=== PATIENT | male | born 1980 | race Caucasian/White ===

== ENCOUNTER 2017-03-04 15:42 | Inpatient (IN) | payer BC ==
[~2017-03-04] VITALS: Ht 167.6 cm; Wt 63.5 kg
--- NOTE | ~2017-03-04 | HP ---
Unit #: [id number] #: [id number] Patient: LUX REYNOLDS JR [id number] [place] [address] [id number] MR#: [id number] NAME: LUX REYNOLDS JR ROOM: P262 Age: 36 Sex: M Admission Date: 03/04/2017 : 1980 Attending Physician: Je Mcrae M.D. Admitting Physician: Je Mcrae M.D. Primary Care Physician: Primary Care Physician No HISTORY AND PHYSICAL HISTORY OF PRESENT ILLNESS Lux is a 36 year old admitted to [address] [place] [address] because of his polysubstance abuse which includes alcohol, methamphetamine and cocaine. PAST MEDICAL HISTORY History of illicit substance abuse to include methamphetamine and cocaine. PAST SURGICAL HISTORY Oral. ALLERGIES No known drug allergies. SOCIAL HISTORY Smokes 1 pack per day. Drinks at least a 6 pack of beer on a daily basis and admits to a history of illicit drug use to include methamphetamine and cocaine. FAMILY HISTORY Medically noncontributory. REVIEW OF SYSTEMS CONSTITUTIONAL: No fever or chills. HEENT: Denies any sore throat, ear pain or runny nose. CARDIOVASCULAR: Denies chest pain, irregular heart rhythm or palpitations. CHEST: Denies shortness of breath or cough. No hemoptysis. GASTROINTESTINAL: Denies nausea, vomiting, diarrhea or chronic constipation. ENDOCRINE: Denies history of increased thirst or urination. No recent significant weight loss or gain. GENITOURINARY: Denies dysuria, frequency, or hematuria. SKIN: Denies any rashes. HEMATOLOGIC: Denies history of increased bleeding or bruising. MUSCULOSKELETAL: Denies any hot, swollen joints. No generalized muscle pain. NEUROLOGIC: Denies problems with vision or speech. No frequent, severe headaches. No numbness, tingling or weakness in any extremities. Denies loss of bladder or bowel control. CURRENT MEDICATIONS 1. Trazodone 75 mg q.h.s. p.r.n. 2. Milk of Magnesia p.r.n. 3. Maalox p.r.n. Unit #: [id number] #: [id number] Patient: LUX REYNOLDS JR 4. Tylenol p.r.n. 5. Zyprexa 10 mg b.i.d. 6. Nicotine patch 14 mg daily. PHYSICAL EXAMINATION GENERAL: Alert, well-nourished, in no apparent distress. VITAL SIGNS: Blood pressure 128/80, heart rate 80, respirations 16, temperature 98.6. WEIGHT: 140. HEIGHT: 5 feet 6 inches. SKIN: Warm and dry without rash or lesion. HEENT: Normocephalic. TMs not viewed. Oral and nasal passages clear. Conjunctivae clear. PERRLA. EOMs intact. NECK: Supple without lymphadenopathy or thyromegaly. HEART: Regular rate and rhythm without murmur. LUNGS: Clear. ABDOMEN: Soft, nontender. : Not done. EXTREMITIES: No evidence of cyanosis, clubbing or edema. Moves all without focal deficit. NEUROLOGICAL: Grossly within normal limits. Cranial Nerves: II: Visual canela are intact. III, IV AND : Extraocular movements are intact. Pupils are equal, round and reactive to light. V: Facial sensation is grossly normal. VII: Facial movements and expression are normal. VIII: Auditory acuity grossly intact. IX, X: Uvula is midline. Phonation is normal. XI: Patient shrugs shoulders and turns head normally. XII: Tongue protrudes in the midline. Sensory and Motor Function: Sensory and motor sensation is grossly normal. Motor: moves all extremities well. Coordination: Gait is normal. Deep Tendon Reflexes: Intact. IMPRESSION Psychiatric admission. RECOMMENDATIONS PSYCHIATRIC: Per psychiatrist. MEDICAL: See no contraindication to participate in facility's activities. MEDICAL PROGNOSIS Good. MEDICAL CONDITION Stable. Dictated by... Pat Ferraro P.A.-C. for Gt Kiser/tracy TD: 03/05/2017 17:19 JOB #: [id number] Unit #: [id number] #: [id number] Patient: LUX REYNOLDS JR HISTORY AND PHYSICAL Page 1 of 1 X Pat Ferraro HISTORY AND PHYSICAL
--- NOTE | ~2017-03-04 | PN ---
Unit #: [id number] #: [id number] Patient: LUX REYNOLDS JR [id number] [facility] [address] [place] [address] [id number] MR#: [id number] NAME: LUX REYNOLDS JR ROOM: [facility] Age: 36 Sex: M Admission Date: 03/04/2017 : 1980 Attending Physician: Je Mcrae M.D. Admitting Physician: Je Mcrae M.D. Primary Care Physician: Primary Care Physician Palma ROJAS PROGRESS NOTES DATE OF SERVICE 03/07/2017 DISCUSSION Lux is a 36-year-old male seen on 03/07/2017. Patient interviewed, chart reviewed. Obtained information from nursing staff. Patient compliant and cooperative. Mood sad, dysphoric. Patient tolerating medication fairly well, no side effects from medication. Complete review of systems unremarkable. MENTAL STATUS EXAMINATION General appearance, patient dressed casually. Attention span and concentration fair. Oriented to time, place and person. Mood and affect labile. Speech monotone. Thought process concrete. Patient denied any hallucination. Recent and remote memory poor. Insight and judgement poor. DIAGNOSES 1. Psychosis NOS 2. Mood disorder NOS 3. Rule out bipolar mood disorder. 4. Rule out substance abuse disorder. ASSESSMENT/PLAN Advise to continue with current medication and therapeutic protocol. If needed consider further adjustment of medication. Dictated by... Gt Davila/chapito TD: 03/09/2017 03:54 JOB #: [id number] Unit #: [id number] #: [id number] Patient: LUX REYNOLDS JR [facility] PROGRESS NOTES Page 1 of 1 X Je Mcrae MD PROGRESS NOTE
--- NOTE | ~2017-03-04 | PN ---
Unit #: [id number] #: [id number] Patient: LUX REYNOLDS JR [id number] [facility] [address] [place] [address] [id number] I MR#: [id number] NAME: LUX REYNOLDS JR ROOM: [facility] Age: 36 Sex: M Admission Date: 03/04/2017 : 1980 Attending Physician: Je Mcrae M.D. Admitting Physician: Je Mcrae M.D. Primary Care Physician: Primary Care Physician Palma ROJAS PROGRESS NOTES DATE OF SERVICE 03/06/2017 DISCUSSION Lux Reynolds is an 36-year-old male seen on 03/06/2017. Patient interviewed, chart reviewed. Obtained information from nursing staff. Patient compliant with medication but still isolative, guarded, flat affect. Complete review of systems unremarkable. Vital signs 98.4, 61, 18, 114/64. Still somewhat guarded, paranoid. MENTAL STATUS EXAMINATION General appearance, patient dressed casually. Attention span and concentration fair. Oriented to place and person. Mood and affect sad, depressed. Speech monotone. Thought process concrete. Patient denied any thoughts of harming self or others but guarded, paranoid. Recent and remote memory poor. Insight and judgement poor. DIAGNOSES 1. Psychosis NOS 2. Bipolar mood disorder NOS. 3. Rule out substance abuse disorder. ASSESSMENT/PLAN Advise to continue with current medication and therapeutic protocol. If needed consider further adjustment of medication. Dictated by... Gt Davila/chapito TD: 03/08/2017 02:59 JOB #: [id number] Unit #: [id number] #: [id number] Patient: LUX REYNOLDS JR [facility] PROGRESS NOTES Page 1 of 1 X Je Mcrae MD PROGRESS NOTE
--- NOTE | ~2017-03-04 | PA ---
Unit #: [id number] #: [id number] Patient: LUX SALAZAR JR [id number] [facility] [address] [place] [address] [id number] I MR#: [id number] NAME: LUX SALAZAR JR ROOM: P262 Age: 36 Sex: M Admission Date: 03/04/2017 : 1980 Date of Assessment: 03/05/2017 Attending Physician: Je Mcrae M.D. Admitting Physician: Je Mcrae M.D. Primary Care Physician: Primary Care Physician No PSYCHIATRIC ASSESSMENT INFORMANTS The patient's reliability, fair; chart reliability, good. CHIEF COMPLAINT Paranoia, somebody is after me. HISTORY OF PRESENT ILLNESS Mr. Lux Salazar is a 36-year-old male, presented with the above-mentioned complaint. The patient reported increase in paranoia, feeling scared. The patient currently unemployed, lives with the mom. The patient reported increase in paranoia, racing thoughts. The patient denied being on any medication. Denied any use of any drugs or alcohol. Denied any suicidal or homicidal ideation, but increase in paranoia, guarded and paranoid. The patient reported recent use of alcohol, amphetamine, cocaine according to the intake reports. The patient diagnosed with bipolar mood disorder. The patient also has a history of substance abuse. Needing inpatient admission at this time for psychiatric stabilization. PAST PSYCHIATRIC HISTORY Remarkable for history of diagnosis of bipolar mood disorder, but no history of any previous treatment. FAMILY HISTORY AND SOCIAL HISTORY The patient has a good support from his mother. No history of any abuse. History of alcohol and bipolar disorder in uncle, currently on no medication. History of legal charges in the past for distributing meth. MEDICAL HISTORY Unremarkable for any chronic medical illness. Musculoskeletal; muscle strength and tone, no atrophy or abnormal movement. Gait normal. MEDICATION HISTORY None. ALLERGIES No known drug allergies. SUBSTANCE ABUSE HISTORY The patient reported tobacco use, age of onset 13; alcohol, age of onset 18; marijuana, age of onset 14; crack cocaine, age of onset 27; amphetamine, age of onset 36. The patient denied any blackout, HIV, hepatitis, withdrawal symptom, or IV drug use. Unit #: [id number] #: [id number] Patient: LUX SALAZAR JR REVIEW OF SYSTEMS HEENT: Eyes, clear. Ears, nose, mouth, and throat; clear. CARDIOVASCULAR: Unremarkable. RESPIRATORY: Unremarkable. GI: Unremarkable. : Unremarkable. SKIN: Unremarkable. LYMPH NODE: Unremarkable. NEUROLOGIC: Unremarkable. ENDOCRINE: Unremarkable. HEMATOLOGIC: Unremarkable. ALLERGIC/IMMUNOLOGIC: Unremarkable. MUSCULOSKELETAL: Muscle strength and tone, no atrophy or abnormal movement. Gait normal. MENTAL STATUS EXAMINATION CONSTITUTIONAL: Measurement of vital signs; temperature 98.3, pulse 78, respirations 16, blood pressure 128/79. Height 5 feet 6 inches, weight 140 pounds. GENERAL APPEARANCE: The patient dressed casually. No facial deformity noted. MUSCULOSKELETAL: Please see above. PSYCHIATRIC EXAMINATION Description of speech; rapid in rate. Description of thought process, circumstantial. Description of association, intact. Description of abnormal psychotic thinking; guarded, paranoid, mood lability, paranoia, but denied any thoughts of harming self or others. Description of the patient's judgment; concerning everyday activity, poor. Social situation, poor. Concerning psychiatric condition, poor. Complete mental status examination; oriented in time, place, and person. Recent and remote memory, fair. Attention span and concentration, fair. Language, able to name object and repeat phrases. Fund of knowledge, aware of current event and passive vocabulary intact. Mood and affect, sad and dysphoric. Insight and judgment, fair to poor. ASSETS AND LIABILITIES Assets; the patient articulate, able to take care of his ADL. Liability; history of substance abuse, depression. ADMITTING DIAGNOSES Psychiatric: Bipolar mood disorder, not otherwise specified, F31.9; psychosis, not otherwise specified, F29.0; rule out amphetamine use disorder, F15.20. Secondary diagnosis: Deferred. Medical diagnosis: None. Stressors: Psychosocial stressors. PSYCHIATRIC PLAN AND TREATMENT GOAL 1. Advised to admit the patient on the inpatient unit. Provide safe, supportive, and structured environment. 2. Ordered labs; CBC, CMP, UA, and UDS. 3. Advised to consider medication such as Zyprexa. The patient to attend all the programming with group therapy, individual therapy, chemical Unit #: [id number] #: [id number] Patient: LUX SALAZAR JR dependency group, structured milieu. Treatment goal to attain euthymic mood, gain insight into his problem, and learn coping skills. DISCHARGE PLAN Plan to stabilize the patient and consider followup in outpatient program. ESTIMATED LENGTH OF STAY 3 to 5 days. Dictated by... Gt Davila/brant TD: 03/05/2017 23:57 JOB #: [id number] PSYCHIATRIC ASSESSMENT Page 1 of 1 X Je Mcrae MD X PSYCHIATRIC ASSESSMENT
--- NOTE | ~2017-03-04 | PN ---
Unit #: [id number] #: [id number] Patient: FELIPE REYNOLDS JR [id number] [facility] [address] [place] [address] [id number] I MR#: [id number] NAME: FELIPE REYNOLDS JR ROOM: [facility] Age: 36 Sex: M Admission Date: 03/04/2017 : 1980 Attending Physician: Je Mcrae M.D. Admitting Physician: Je Mcrae M.D. Primary Care Physician: Primary Care Physician Palma ROJAS PROGRESS NOTES DATE 03/05/2017 DISCUSSION Mr. Wasserman is a 36-year-old male. Patient interviewed. Chart reviewed. Obtained information from nursing staff. Patient continues to be guarded, paranoid, withdrawn, isolative, extremely paranoid. Patient's vital signs unremarkable. Complete review of system unremarkable. MENTAL STATUS EXAMINATION General appearance, patient dressed casually. Attention span, concentration fair. Oriented in time, place and person. Mood and affect labile. Speech rapid, pressured. Thought process circumstantial, guarded, paranoid but denied any thoughts of harming self or others. Recent and remote memory poor. Insight and judgement poor. DIAGNOSES 1. Psychosis NOS. 2. Bipolar mood disorder NOS. 3. Rule out amphetamine use disorder. ASSESSMENT/PLAN Advised to continue with current medication and therapeutic protocol. Patient is on Zyprexa 10 mg b.i.d. If needed, consider further adjustment of medication. Dictated by... tG Davila/tracy TD: 03/06/2017 16:56 JOB #: [id number] Unit #: [id number] #: [id number] Patient: FELIPE REYNOLDS JR [facility] PROGRESS NOTES Page 1 of 1 X Je Mcrae MD PROGRESS NOTE
--- NOTE | ~2017-03-04 | DS ---
Unit #: [id number] #: [id number] Patient: FELIPE REYNOLDS JR [id number] [facility] [address] [place] [address] [id number] I MR#: [id number] NAME: FELIPE REYNOLDS JR ROOM: [facility] Age: 36 Sex: M Admission Date: 03/04/2017 : 1980 Discharge Date: 03/08/2017 Attending Physician: Je Mcrae M.D. Primary Care Physician: Primary Care Physician No DISCHARGE SUMMARY REASON FOR ADMISSION Paranoia. DIAGNOSTIC STUDIES LABORATORY DATA: Urine drugs screen unremarkable. HOSPITAL COURSE The patient was admitted to inpatient unit on March 04 and discharged on 03/08/2017. The patient was treated with group therapy, individual therapy, and medication management. The patient was responsive to treatment, showed improvement. Subsequently the patient was discharged with a plan to follow up in outpatient program. DISCHARGE MEDICATIONS 1. Trazodone 50 mg at bedtime for sleep. 2. Zyprexa 10 mg at bedtime for psychosis and mood stabilization. DISCHARGE DIAGNOSES PSYCHIATRIC: Bipolar mood disorder not otherwise specified, F31.89. Psychosis, not otherwise specified, F29.0 Rule out amphetamine abuse. SECONDARY: Deferred. MEDICAL: None. STRESSORS: Psychosocial stressor. FOLLOWUP CARE The patient to follow up in outpatient clinic as per social and human services assistant. CONDITION ON DISCHARGE The patient pleasant, cooperative. Denied any psychotic symptom or any suicidal ideation. PROGNOSIS Guarded. DIET AND ACTIVITY As tolerated. Dictated by... Je Mcrae M.D. Unit #: [id number] #: [id number] Patient: FELIPE REYNOLDS JR JOSE ARMANDO/bzg TD: 03/10/2017 09:41 JOB #: [id number] DISCHARGE SUMMARY Page 1 of 1 X Je Mcrae MD X DISCHARGE SUMMARY
[2017-03-05 12:34] LABS: BASOPHIL% 0.5 % (0-2.5); EOSINOPHIL# 0.1 X10e3 (0-0.7); EOSINOPHIL% 1.3 % (0.0-7.0); HEMATOCRIT 42.7 % (38.0-50.0); HEMOGLOBIN 14.8 gm/dL (13.0-16.0); LYMPHOCYTE# 1.7 X10e3 (1.0-3.5); LYMPHOCYTE% 20.9 % (17.0-45.0); MEAN CELL VOLUME 89.9 FL (83-96); MEAN CORPUSCULAR HEMOGLOBIN 31.1 PG (28-34); MEAN CORPUSCULAR HGB CONC 34.6 g/dL (30-36); MEAN PLATELET VOLUME 7.7 FL (6.5-11.5); MONOCYTE# 0.7 X10e3 (0-1.0); MONOCYTE% 8.7 % (3.0-12.0); NEUTROPHIL# 5.6 X10e3 (1.5-7.1); NEUTROPHIL% 68.6 % (40-75); PLATELET COUNT 207 X10e3 (140-420); RED BLOOD COUNT 4.75 X10e (3.90-5.60); WHITE BLOOD COUNT 8.2 X10e3 (4.0-10.5)
[2017-03-05 12:38] LABS: DIFF IND NO
[2017-03-05 12:48] LABS: ALBUMIN SERUM 3.9 g/dL (3.5-5.0); BILIRUBIN,TOTAL 0.7 mg/dL (0.2-2.0); BUN/CREATININE RATIO 15.55; CALCIUM SERUM 9.4 mg/dL (8.4-10.2); CREATININE SERUM 0.9 mg/dL (0.6-1.4); GLOM FILT RATE Estimated 110.3 mL/min (>60); PROTEIN TOTAL SERUM 6.9 g/dL (6.0-8.3)
[2017-03-07 11:26] LABS: URINE APPEARANCE CLEAR; URINE BILIRUBIN NEG (NEG); URINE BLOOD NEG (NEG); URINE COLOR YELLOW; URINE GLUCOSE NEG (NEG); URINE KETONE NEG (NEG); URINE LEUKOCYTE ESTERASE NEG (NEG); URINE NITRATE NEG (NEG); URINE PH 5.5 (5-8); URINE PROTEIN NEG (NEG); URINE SPECIFIC GRAVITY 1.011 (1.003-1.035); URINE UROBILINOGEN 0.2 MG/DL (NEG)
[2017-03-07 11:36] LABS: AMPHETAMINE NEG (NEG); BARBITURATES NEG (NEG); BENZODIAZEPINES NEG (NEG); COCAINE NEG (NEG); MARIJUANA NEG (NEG); OPIATES NEG (NEG); TRICYCLIC ANTIDEPRESSANTS NEG (NEG); U METHADONE NEG (NEG)
== END 2017-03-08 11:45 | disposition home or self-care (01) | DRG 885 ==
LOC: P2L 19:02
PROVIDERS: Psychiatry & Neurology Psychiatry
DX: F31.9 Bipolar disorder, unspecified (principal); F15.20 Other stimulant dependence, uncomplicated; F29 Unspecified psychosis not due to a substance or known physiological condition; F17.210 Nicotine dependence, cigarettes, uncomplicated; F19.10 Other psychoactive substance abuse, uncomplicated; Z72.89 Other problems related to lifestyle
CPT/HCPCS: 80053; 80307; 81003; 85025